=== PATIENT | male | born 1980 | race Caucasian/White ===

== ENCOUNTER → 2020-08-24 | Outpatient (CLI) | payer OTHER ==
[~2020-08-24] MED LIST: FLEXERIL 1010 MG/TAB PO; LEXAPRO 5MG5 MG PO; MOTRIN 800800 MG/TAB PO; NORCO 325 MG-51 TAB PO; PROTONIX 40MG T40 MG PO; RESTORIL 1515 MG/CAP PO
== END ==
LOC: COL.RAD 08:26
DX: K44.9 Diaphragmatic hernia without obstruction or gangrene (principal); K21.00 Gastro-esophageal reflux disease with esophagitis, without bleeding

== ENCOUNTER 2020-09-01 08:57 | Day surgery (SDC) | payer OTHER ==
[2020-09-01] VITALS (10 sets, daily range): BP systolic 123–141; BP diastolic 53–90; PULSE 82–93; TEMP 97.5–98.9
[~2020-09-01] VITALS: Ht 185.4 cm; Wt 92.5 kg
[2020-09-01] MEDS ORDERED: FLEXERIL 1010 MG/TAB PO (10:24)
[2020-09-01] MEDS ORDERED: LEXAPRO 5MG5 MG PO (10:25)
[2020-09-01] MEDS ORDERED: MOTRIN 800800 MG/TAB PO (10:25)
[2020-09-01] MEDS ORDERED: RESTORIL 1515 MG/CAP PO (10:26)
[2020-09-01] MEDS ORDERED: PROTONIX 40MG T40 MG PO (10:27)
--- NOTE | 2020-09-01 13:35 | NUR ---
Patient to room 349 post op lap rex. Abdomen soft, non distended. Bowel sounds hypoactive x4 quads. Lap sites x6 with edges well approximated, no redness or drainage noted. Post op exercises reviewed with patient, no c/o at this time.
--- NOTE | 2020-09-02 03:01 | NUR ---
Pt has been ok after the procedure. pt rated his pain 4/10 and tylenol was given.Pt ate [employer] and ambulated in the room. VSS. Will continue to monitor.
[2020-09-02 03:36] VITALS: BP 112/73; PULSE 84; TEMP 98.1
[2020-09-02 07:31] VITALS: BP 129/89; PULSE 74; TEMP 98
--- NOTE | 2020-09-02 08:40 | NUR ---
Patient sitting up in bed. Alert and oriented x 3. Assessment complete. Patient up independently in room. Lap sites x 6 with edges well approximated. Tolerating diet. Denies needs at this time.
--- NOTE | 2020-09-02 10:35 | NUR ---
Dr. Spencer in to see patient.
[2020-09-02] MEDS ORDERED: NORCO 325 MG-51 TAB PO (10:45)
--- NOTE | 2020-09-02 11:00 | NUR ---
Discharge education provided to patient. Educated on signs and symptoms of infection and when to call provider. Educated on medication safety and pain medications. Spouse at bedside. INT to right hand discontinued, catheter tip intact. All questions answered. Patient denies further needs at this time. Patient ambulated out with surgical staff and spouse.
--- NOTE | 2020-09-02 13:26 | NUR ---
Initial visit; Patient thanked [employer] for looking in on him, visiting about his family and plans for the future. [employer] offered God's blessings and to keep him in her prayers for rapid and thorough healing.
== END 2020-09-02 11:10 | disposition home or self-care (01) ==
LOC: SDCO 08:57 → SURG 14:47 → SDCO 09-02 11:10
DX: K44.9 Diaphragmatic hernia without obstruction or gangrene (principal); K21.00 Gastro-esophageal reflux disease with esophagitis, without bleeding; F17.210 Nicotine dependence, cigarettes, uncomplicated; F41.9 Anxiety disorder, unspecified; Z90.49 Acquired absence of other specified parts of digestive tract; Z79.899 Other long term (current) drug therapy; Z90.89 Acquired absence of other organs
CPT/HCPCS: OP; J0690; J1100; J1170; J1885; J2405; J2704; J2765; J3010; J7120

== ENCOUNTER → 2020-10-04 | Outpatient (CLI) | payer OTHER | LOC: MHCPAIN 15:04 | DX: M47.817 Spondylosis without myelopathy or radiculopathy, lumbosacral region (principal); M54.5 Low back pain; M53.3 Sacrococcygeal disorders, not elsewhere classified | CPT/HCPCS: G0463 ==

== ENCOUNTER → 2020-11-01 | Outpatient (CLI) | payer OTHER | LOC: MHCPAIN 13:19 | DX: M47.817 Spondylosis without myelopathy or radiculopathy, lumbosacral region (principal); M54.5 Low back pain; M53.3 Sacrococcygeal disorders, not elsewhere classified ==

== ENCOUNTER → 2020-12-27 | Outpatient (CLI) | payer OTHER | LOC: MHCPAIN 10:58 | DX: M47.817 Spondylosis without myelopathy or radiculopathy, lumbosacral region (principal); M54.50 Low back pain, unspecified; M53.3 Sacrococcygeal disorders, not elsewhere classified | CPT/HCPCS: G0463 ==

== ENCOUNTER → 2021-01-13 | Outpatient (CLI) | payer OTHER | LOC: MHCPAIN 13:00 | DX: M47.817 Spondylosis without myelopathy or radiculopathy, lumbosacral region (principal); M53.3 Sacrococcygeal disorders, not elsewhere classified; M54.50 Low back pain, unspecified | CPT/HCPCS: G0463; J1100; J2250; J3010 ==

== ENCOUNTER → 2021-02-03 | Outpatient (CLI) | payer OTHER | LOC: MHCPAIN 12:47 | DX: M47.817 Spondylosis without myelopathy or radiculopathy, lumbosacral region (principal); M53.3 Sacrococcygeal disorders, not elsewhere classified; M54.50 Low back pain, unspecified | CPT/HCPCS: J1100; J2250; J3010 ==